=== PATIENT | male | born 1980 | race African-American/Black ===

== ENCOUNTER 2017-01-04 11:27 | Emergency (ER) | payer OTHER ==
[2017-01-04] MEDS ORDERED: Ibuprofen TAB* 600 MG PO ONE (13:21)
--- NOTE | 2017-01-04 13:43 | RAD ---
INDICATION: Headaches COMPARISON: February 08, 2013 TECHNIQUE: Noncontrast axial source images were acquired from the skull base to the vertex. FINDINGS: Ventricles/sulci: The ventricles and cisterns are normal in size and configuration for age. Brain parenchyma: There is no focal parenchymal finding, evidence of intracranial mass, or intracranial mass effect. Intracranial hemorrhage:None. Extra-axial spaces: There are no abnormal extra axial fluid collections or evidence of extra-axial mass. Calvarium: There is no calvarial fracture. 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 Scalp: There is no evidence of scalp or extracalvarial soft tissue abnormality. Paranasal sinuses/mastoid: The paranasal sinuses and mastoid air cells are clear. Other: None. IMPRESSION: No acute intrarenal findings.
[2017-01-04 14:05] LABS: Hematocrit 46 % (42-52); Hemoglobin 15.3 g/dl (14.0-18.0); Mean Corpuscular HGB Conc 33 g/dl (31-36); Mean Corpuscular Hemoglobin 30 pg (27-31); Mean Corpuscular Volume 92 fL (80-94); Mean Platelet Volume 9 um3 (7.4-10.4); Red Blood Count 5.05 10^6/ul (4.0-5.4); Red Cell Distribution Width 13 % (10.5-15); White Blood Count 3.8 10^3/ul (3.5-10.8)
[2017-01-04 14:07] LABS: Add Diff/Slide Review? Slide Review Added; Comments Flag Yes
[2017-01-04 14:18] LABS: BUN/Creatinine Ratio 13.3 (8-20); Calcium 9.2 mg/dL (8.6-10.3); EGFR African American 136.4 (>60); EGFR Non-African American 106.1 (>60); Globulin 2.8 g/dL (2-4); Potassium 3.9 mmol/L (3.5-5.0); Total Bilirubin 0.6 mg/dL (0.2-1.0); Total Protein 6.8 g/dL (6.4-8.9)
[2017-01-04 15:02] LABS: TSH (Thyroid Stimulating Horm) 0.18 mcIU/mL (0.34-5.60)
[2017-01-04 15:39] VITALS: BP 108/85
--- NOTE | 2017-01-04 22:33 | ED ---
Vickie Sorensen Salem, scribed for Gera Segovia MD on 01/04/17 at 1318 . Headache - HPI Summary HPI Summary: Patient is a 36 y/o male who presents to the ED with an intermittent, sharp, left frontal headache for the past 3 days. Pt reports CP that radiates to his head. He also reports an increase in blood pressure with salty PO intake followed by shaking and a severe headache. He denies any changes in vision or nausea. He states he called his PCP today was told to come into the ED. Pt reports he has been taking Ibuprofen for the pain with mild alleviation of pain , but he has not taken any medication today. He denies HTN and has a hx of headaches. - History Of Current Complaint Chief Complaint: EDChestPainROMI Stated Complaint: CHEST PAIN, HEADACHE, HIGH BLOOD PRESSURE Time Seen by Provider: 01/04/17 13:01 Hx Obtained From: Patient Onset/Duration: Gradual Onset, Started days ago Initially Headache Was: Moderate Currently Pain Is: Moderate Timing: Intermittent, Lasting: Character: Sharp Location of Headache: Frontal - Left sided. Aggravating Factor: Other - Salt intake. Associated Signs And Symptoms: Other (Noted In Comments) - Ibuprofen - Allergies/Home Medications Allergies/Adverse Reactions: Allergies Allergy/AdvReac Type Severity Reaction Status Date / Time Shellfish Allergy Allergy Intermediate Hives Verified 01/04/17 11:30 Penicillins Allergy Unknown Unknown Verified 01/04/17 11:30 Reaction Details PMH/Surg Hx/FS Hx/Imm Hx Respiratory History: Reports: Hx Asthma Musculoskeletal History: Reports: Other Musculoskeletal History - cp Infectious Disease History: No Infectious Disease History: Denies: Traveled Outside the [place] in Last 30 Days - Family History Known Family History: Positive: Hypertension - Social History Alcohol Use: Rare Hx Substance Use: No Substance Use Type: Reports: None Hx Tobacco Use: No Smoking Status (MU): Never Smoked Tobacco Review of Systems Negative: Fever Positive: Other - No changes in vision. Positive: Chest Pain, Other - Increased bp with salt intake. Negative: Nausea Positive: Headache - Left frontal. All Other Systems Reviewed And Are Negative: Yes Physical Exam Triage Information Reviewed: Yes Vital Signs On Initial Exam: Initial Vitals Temp Pulse Resp BP Pulse Ox 98.8 F 84 16 129/77 100 01/04/17 11:41 01/04/17 11:41 01/04/17 11:41 01/04/17 11:41 01/04/17 11:41 Vital Signs Reviewed: Yes Appearance: Positive: Well-Appearing, No Pain Distress Skin: Positive: Warm, Skin Color Reflects Adequate Perfusion, Dry Head/Face: Positive: Normal Head/Face Inspection Eyes: Positive: Normal Neck: Positive: Supple, Nontender Respiratory/Lung Sounds: Positive: Clear to Auscultation, Breath Sounds Present Cardiovascular: Positive: RRR Abdomen Description: Positive: Nontender, Soft Bowel Sounds: Positive: Present Musculoskeletal: Positive: Normal, Other - Weakness and deformity due to cerebral palsy. Neurological: Positive: Normal Psychiatric: Positive: Normal, Affect/Mood Appropriate Diagnostics - Vital Signs Vital Signs Temp Pulse Resp BP Pulse Ox 01/04/17 11:41 98.8 F 84 16 129/77 100 - Laboratory Lab Results: Lab Results 01/04/17 01/04/17 01/04/17 Range/Units 13:53 13:53 13:53 WBC 3.8 (3.5-10.8) 10^3/ul RBC 5.05 (4.0-5.4) 10^6/ul Hgb 15.3 (14.0-18.0) g/dl Hct 46 (42-52) % MCV 92 (80-94) fL MCH 30 (27-31) pg MCHC 33 (31-36) g/dl RDW 13 (10.5-15) % Plt Count 221 (150-450) 10^3/ul MPV 9 (7.4-10.4) um3 Neut % (Auto) 46.2 (38-83) % Lymph % (Auto) 37.8 (25-47) % Grady % (Auto) 8.9 (1-9) % Eos % (Auto) 5.4 (0-6) % Baso % (Auto) 1.7 (0-2) % Absolute Neuts (auto) 1.7 (1.5-7.7) 10^3/ul Absolute Lymphs (auto) 1.4 (1.0-4.8) 10^3/ul Absolute Monos (auto) 0.3 (0-0.8) 10^3/ul Absolute Eos (auto) 0.2 (0-0.6) 10^3/ul Absolute Basos (auto) 0.1 (0-0.2) 10^3/ul Absolute Nucleated RBC 0.01 10^3/ul Nucleated RBC % 0.2 Sodium 138 (133-145) mmol/L Potassium 3.9 (3.5-5.0) mmol/L Chloride 105 (101-111) mmol/L Carbon Dioxide 30 (22-32) mmol/L Anion Gap 3 (2-11) mmol/L BUN 11 (6-24) mg/dL Creatinine 0.83 (0.67-1.17) mg/dL Est GFR ( Amer) 136.4 (>60) Est GFR (Non-Af Amer) 106.1 (>60) BUN/Creatinine Ratio 13.3 (8-20) Glucose 81 (70-100) mg/dL Lactic Acid 1.5 (0.5-2.0) mmol/L Calcium 9.2 (8.6-10.3) mg/dL Total Bilirubin 0.60 (0.2-1.0) mg/dL AST 15 (13-39) U/L ALT 7 (7-52) U/L Alkaline Phosphatase 48 (34-104) U/L Troponin I 0.00 (<0.04) ng/mL Total Protein 6.8 (6.4-8.9) g/dL Albumin 4.0 (3.2-5.2) g/dL Globulin 2.8 (2-4) g/dL Albumin/Globulin Ratio 1.4 (1-3) TSH 0.18 L (0.34-5.60) mcIU/mL Result Diagrams: 01/04/17 13:53 01/04/17 13:53 Lab Statement: Any lab studies that have been ordered have been reviewed, and results considered in the medical decision making process. - CT BRAIN CT Interpretation Completed By: Radiologist - IMPRESSION: No acute intrarenal findings. - EKG 1136 EKG Rhythm: Sinus Rhythm - @ 70 bpm. Re-Evaluation - Re-Evaluation First Eval Re-Evaluation Time: 15:11 Comment: Informed pt of plan. He is agreeable. Headache Course/Dx - Course Course Of Treatment: Amrik improved with ibuprofen and his W/U was negative. I recommended close F/U and monitoring of his blood pressure. - Diagnoses Provider Diagnoses: Headache Discharge - Discharge Plan Condition: Stable Disposition: HOME Patient Education Materials: Acute Headache (ED) Forms: *Work Release Referrals: Judy Muñoz B[employer]ER [Primary Care Provider] - Additional Instructions: Follow up with PCP this week. The documentation as recorded by the Vickie walsh Salem accurately reflects the service I personally performed and the decisions made by me, Gera Segovia MD.
== END 2017-01-04 15:38 | disposition home or self-care (01) ==
LOC: ED 11:27
DX: R51 Headache (principal); Z88.0 Allergy status to penicillin
CPT/HCPCS: 36415; 70450; 80053; 83605; 84443; 84484; 85025; 86703; 93005; 99282; A9270-GY

== ENCOUNTER 2017-09-30 18:44 | Emergency (ER) | payer OTHER ==
[2017-09-30 19:06] VITALS: BP 135/82
--- NOTE | 2017-09-30 19:26 | UC ---
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 He had previously had similar episodes and last one was 2 years ago. He had CT head in February 08, 2013 which was wnl. - History Of Current Complaint Chief Complaint: UCHeadache Stated Complaint: HEADACHE Time Seen by Provider: 09/30/17 19:15 Hx Obtained From: Patient Onset/Duration: Sudden Onset, Lasting Hours Onset Of Symptoms: Sudden Currently Pain Is: Moderate Pain Scale Used: 0-10 Numeric - 7 Character: Throbbing Location of Headache: Other: - hemicranial right - Allergies/Home Medications Allergies/Adverse Reactions: Allergies Allergy/AdvReac Type Severity Reaction Status Date / Time Shellfish Allergy Allergy Intermediate Hives Verified 09/30/17 19:07 Penicillins Allergy Unknown Unknown Verified 09/30/17 19:07 Reaction Details PMH/Surg Hx/FS Hx/Imm Hx Previously Healthy: Yes Respiratory History: Asthma Neurological History: Other - cerebral palsy Other Neurological History: cn II to XII grossly intact, no nistagmus, no adiadocokynesia, atrophic LE/ - Surgical History Surgical History: None Surgery Procedure, Year, and Place: Legs as a child - Family History Known Family History: Positive: Hypertension - Social History Alcohol Use: None Substance Use Type: None Smoking Status (MU): Never Smoked Tobacco - Immunization History Most Recent Influenza Vaccination: 2016 Review of Systems Neurological: Headache Is Patient Immunocompromised?: No All Other Systems Reviewed And Are Negative: Yes Physical Exam Triage Information Reviewed: Yes Appearance: No Pain Distress Vital Signs: Initial Vital Signs Temp 98.3 F 09/30/17 19:01 Pulse 79 09/30/17 19:01 Resp 16 09/30/17 19:01 BP 135/82 09/30/17 19:01 Pulse Ox 97 09/30/17 19:01 Vital Signs Reviewed: Yes Eyes: Positive: Conjunctiva Clear, Other: - PERRLA ENT Exam: Normal Neck exam: Normal Respiratory Exam: Normal Cardiovascular Exam: Normal Abdominal Exam: Normal Bowel Sounds: Positive: Present Neurological Exam: Other - CN 11-XII grossly intact, no nystagmus, Neurological: Positive: Alert Headache Course/Dx - Differential Dx/Diagnosis Provider Diagnoses: Migraine headache Discharge - Discharge Plan Condition: Stable Disposition: HOME Patient Education Materials: Migraine Headache (ED) Forms: *Work Release Referrals: Judy Muñoz NP [Primary Care Provider] -
[2017-09-30] MEDS ORDERED: Naproxen TAB* 250 MG PO ONE (19:32)
== END 2017-09-30 20:11 | disposition home or self-care (01) ==
LOC: UCEAST 18:44
DX: G43.909 Migraine, unspecified, not intractable, without status migrainosus (principal); Z88.0 Allergy status to penicillin; Z91.013 Allergy to seafood
CPT/HCPCS: 99212; A9270-GY; G0463

== ENCOUNTER 2017-11-30 15:08 | Emergency (ER) | payer OTHER ==
[2017-11-30 15:18] VITALS: BP 107/68
--- NOTE | 2017-11-30 15:36 | UC ---
Michel Sorensen Jennifer, scribed for Rl Hagen MD on 11/30/17 at 1525 . Abdominal Pain Male HPI - HPI Summary HPI Summary: The pt is a 37 y/o male who presents with abdominal pain that began last night. Pt reports he took ibuprofen for the pain and developed a headache. The pain is rated a 5/10 and is described as sharp and located diffusely in the upper abdomen, more so on the left. Pt additionally complains he woke up sweating and occasional constipation. Pt reports he is eating okay. He denies nausea, vomiting, diarrhea, and fever. Pt has cerebral palsy. - History of Current Complaint Stated Complaint: ABDOMINAL PAIN, AND HEADACHE Time Seen by Provider: 11/30/17 15:16 Hx Obtained From: Patient Onset/Duration: Sudden Onset, Lasting Hours - Last night, Still Present Timing: Constant Severity Initially: Moderate Severity Currently: Moderate Pain Intensity: 5 Pain Scale Used: 0-10 Numeric Location: Diffuse Radiates: No Character: Cramping, Sharp Aggravating Factor(s): Nothing Alleviating Factor(s): Nothing Associated Signs And Symptoms: Positive: Other - abdominal pain, headache, sweats, occasional constipation. NEGATIVE: fever, nausea, vomiting, diarrhea - Allergies/Home Medications Allergies/Adverse Reactions: Allergies Allergy/AdvReac Type Severity Reaction Status Date / Time Penicillins Allergy Unknown Verified 11/30/17 15:14 Reaction Details shellfish derived Allergy Hives Verified 11/30/17 15:14 Home Medications: Home Medications Ibuprofen [Advil Migraine] 400 mg PO Q6HR PRN 11/30/17 [History Confirmed ] PMH/Surg Hx/FS Hx/Imm Hx Previously Healthy: Yes - Cerebral Palsy - Surgical History Surgical History: None Surgery Procedure, Year, and Place: Legs as a child - Family History Known Family History: Positive: Hypertension - Social History Alcohol Use: None Substance Use Type: None Smoking Status (MU): Never Smoked Tobacco - Immunization History Most Recent Influenza Vaccination: 2016 Review of Systems Constitutional: Negative - Fever Gastrointestinal: Negative - Nausea, vomiting, diarrhea, Abdominal Pain Genitourinary: Other - Occasional constipation Neurological: Headache Is Patient Immunocompromised?: No All Other Systems Reviewed And Are Negative: Yes Physical Exam - Summary Physical Exam Summary: General: well-appearing, no pain distress. Pt is in a wheelchair. Skin: warm, color reflects adequate perfusion, dry Head: normal Eyes: EOMI, STEVO ENT: normal Neck: supple, nontender Respiratory: CTA, breath sounds present Cardiovascular: RRR Abdomen: soft, tender around the umbilicus. Bowel: hypoactive bowel sounds Musculoskeletal: normal, strength/ROM intact Neurological: normal, sensory/motor intact, A&O x3 Psychological: affect/mood appropriate Triage Information Reviewed: Yes Vital Signs: Initial Vital Signs Temp 99.3 F 11/30/17 15:13 Pulse 81 11/30/17 15:13 Resp 18 11/30/17 15:13 BP 107/68 11/30/17 15:13 Pulse Ox 96 11/30/17 15:13 Vital Signs Reviewed: Yes Abd Pain Male Course/Dx - Course Course Of Treatment: Medications reviewed. Allergies noted. DISCUSSED WITH PATIENT I RECOMMEND CT WITH LABS THAT RESULT TODAY FOR EVALUATION OF HIS ABDOMINAL PAIN AND I RECOMMEND EVALUATION IN THE ED. THE PATIENT AGREES AND WILL DRIVE HIMSLEF TO THE ED. I SPOKE WITH ED NURSING ABOUT THE PATIENT. - Differential Dx/Clinical Impression Provider Diagnoses: LEFT SIDED ABDOMINAL PAIN Discharge - Discharge Plan Condition: Stable Disposition: HOME Patient Education Materials: Acute Abdominal Pain (ED) Referrals: Judy Muñoz NP [Primary Care Provider] - Additional Instructions: GO DIRECTLY TO THE EMERGENCY DEPARTMENT FOR FURTHER EVALUATION OF YOUR ABDOMINAL PAIN. The documentation as recorded by the Michel walsh Jennifer accurately reflects the service I personally performed and the decisions made by me, Rl Hagen MD.
== END 2017-11-30 15:31 | disposition home or self-care (01) ==
LOC: UCEAST 15:08
DX: R10.12 Left upper quadrant pain (principal); K59.00 Constipation, unspecified; R51 Headache; G80.9 Cerebral palsy, unspecified
CPT/HCPCS: 99212; G0463

== ENCOUNTER 2018-11-16 21:58 | Emergency (ER) | payer OTHER ==
[2018-11-16] MEDS ORDERED: Nicotine Inhaler* 10 MG AMP INH PRN (22:33)
[2018-11-16 22:51] LABS: ABS Basophils 0 10^3/ul (0-0.2); ABS Eosinophils 0.1 10^3/ul (0-0.6); ABS Lymphocytes 1.6 10^3/ul (1.0-4.8); ABS Monocytes 0.4 10^3/ul (0-0.8); ABS Neutrophils 2.3 10^3/ul (1.5-7.7); ABS Nucleated RBC 0 10^3/ul; Hematocrit 49 % (42-52); Lymphocyte % 35.3 %; Mean Corpuscular HGB Conc 33 g/dl (31-36); Mean Corpuscular Hemoglobin 31 pg (27-31); Mean Corpuscular Volume 93 fL (80-94); Mean Platelet Volume 8.6 fL (7.4-10.4); Nucleated Red Blood Cells % 0.1; Platelet Count 227 10^3/ul (150-450); Red Blood Count 5.23 10^6/ul (4.00-5.40); Red Cell Distribution Width 13 % (10.5-15); White Blood Count 4.4 10^3/ul (3.5-10.8)
[2018-11-16 23:04] LABS: ALT 8 U/L (7-52); AST 15 U/L (13-39); Albumin 4.5 g/dL (3.2-5.2); Albumin/Globulin Ratio 1.5 (1-3); Alkaline Phosphatase 60 U/L (34-104); Anion Gap 7 mmol/L (2-11); BUN/Creatinine Ratio 11.1 (8-20); Blood Urea Nitrogen 9 mg/dL (6-24); CO2 Carbon Dioxide 28 mmol/L (22-32); Calcium 9.5 mg/dL (8.6-10.3); Chloride 104 mmol/L (101-111); EGFR African American 130.5 (>60); EGFR Non-African American 107.8 (>60); Glucose 113 mg/dL (70-100); Potassium 3.4 mmol/L (3.5-5.0); Sodium 139 mmol/L (135-145); Total Protein 7.5 g/dL (6.4-8.9)
[2018-11-16 23:21] LABS: Acetaminophen < 15 mcg/mL; Alcohol < 10 mg/dL (<10); Salicylate < 2.50 mg/dL (<30)
[2018-11-17 00:03] LABS: Urine Appearance Cloudy; Urine Bacteria Absent (Absent); Urine Bilirubin Negative (Negative); Urine Blood 1+ (Negative); Urine Color Amber; Urine Glucose Negative (Negative); Urine Ketones Trace (Negative); Urine Nitrite Negative (Negative); Urine Protein 1+(30 mg/dL) (Negative); Urine Red Blood Cell 1+(3-5/hpf) (Absent); Urine Specific Gravity 1.028 (1.010-1.030); Urine Squamous Epithelial Cell Present (Absent); Urine Urobilinogen Positive (Negative); Urine White Blood Cell 3+(>20/hpf) (Absent)
[2018-11-17 00:13] LABS: Barbiturates Urine Screen None Detected (None Detect); Benzodiazepine Urine Screen None Detected (None Detect); Urine Cannabinoids Screen None Detected (None Detect)
--- NOTE | 2018-11-17 01:18 | ED ---
Medical Screening - HPI Summary HPI Summary: Patient brought 9[address] for expressing suicidal intent on a phone call to his ex-girlfriend. Patient admits to stay event, but states he called down afterwards and does not have those intentions now. Denies any symptoms of illness, pain or injury. Denies, history of suicide attempt, HI. Denies EtOH, recreational drug use. Medical history cerebral palsy and arthritis. I - History of Current Complaint Chief Complaint: EDMentalHealth Stated Complaint: 941 Time Seen by Provider: 11/16/18 22:18 Onset/Duration: Started Hours Ago Severity: mild Associated Signs and Symptoms: Negative PMH/Surg Hx/FS Hx/Imm Hx Endocrine/Hematology History: Denies: Hx Anticoagulant Therapy Cardiovascular History: Denies: Hx Pacemaker/ICD Respiratory History: Reports: Hx Asthma History: Denies: Hx Dialysis Musculoskeletal History: Reports: Other Musculoskeletal History - cp Sensory History: Denies: Hx Eye Prosthesis Neurological History: Denies: Hx Dementia Psychiatric History: Denies: Hx Eating Disorder - Surgical History Surgery Procedure, Year, and Place: Legs as a child Infectious Disease History: No Infectious Disease History: Denies: History Other Infectious Disease, Traveled Outside the [place] in Last 30 Days - Family History Known Family History: Positive: Hypertension - Social History Alcohol Use: None Hx Substance Use: No Substance Use Type: Reports: None Hx Tobacco Use: No Smoking Status (MU): Never Smoked Tobacco Review of Systems Constitutional: Negative Eyes: Negative ENT: Negative Cardiovascular: Negative Respiratory: Negative Gastrointestinal: Negative Genitourinary: Negative Musculoskeletal: Negative Skin: Negative Neurological: Negative Psychological: Normal All Other Systems Reviewed And Are Negative: Yes Physical Exam - Summary Physical Exam Summary: Patient calm and cooperative. Denies active SI's intentions. Triage Information Reviewed: Yes Vital Signs On Initial Exam: Initial Vitals Temp Pulse Resp BP Pulse Ox 99.3 F 93 18 121/88 97 11/16/18 21:58 11/16/18 21:58 11/16/18 21:58 11/16/18 21:58 11/16/18 21:58 Vital Signs Reviewed: Yes Appearance: Positive: Well-Appearing Skin: Positive: Warm Head/Face: Positive: Normal Head/Face Inspection Eyes: Positive: Normal Neck: Positive: Supple Respiratory/Lung Sounds: Positive: Clear to Auscultation Cardiovascular: Positive: Normal Abdomen Description: Positive: Nontender Musculoskeletal: Positive: Normal Neurological: Positive: Normal Psychiatric: Positive: Normal AVPU Assessment: Alert - Josh Coma Scale Best Eye Response: 4 - Spontaneous Best Motor Response: 6 - Obeys Commands Best Verbal Response: 5 - Oriented Coma Scale Total: 15 Diagnostics - Vital Signs Vital Signs Temp Pulse Resp BP Pulse Ox 11/16/18 21:58 99.3 F 93 18 121/88 97 - Laboratory Lab Results: Lab Results 11/16/18 11/16/18 11/16/18 Range/Units 22:42 22:42 23:40 WBC 4.4 (3.5-10.8) 10^3/ul RBC 5.23 (4.00-5.40) 10^6/ul Hgb 16.0 (14.0-18.0) g/dl Hct 49 (42-52) % MCV 93 (80-94) fL MCH 31 (27-31) pg MCHC 33 (31-36) g/dl RDW 13 (10.5-15) % Plt Count 227 (150-450) 10^3/ul MPV 8.6 (7.4-10.4) fL Neut % (Auto) 51.4 % Lymph % (Auto) 35.3 % Hemphill % (Auto) 9.4 % Eos % (Auto) 3.0 % Baso % (Auto) 0.9 % Absolute Neuts (auto) 2.3 (1.5-7.7) 10^3/ul Absolute Lymphs (auto) 1.6 (1.0-4.8) 10^3/ul Absolute Monos (auto) 0.4 (0-0.8) 10^3/ul Absolute Eos (auto) 0.1 (0-0.6) 10^3/ul Absolute Basos (auto) 0 (0-0.2) 10^3/ul Absolute Nucleated RBC 0 10^3/ul Nucleated RBC % 0.1 Sodium 139 (135-145) mmol/L Potassium 3.4 L (3.5-5.0) mmol/L Chloride 104 (101-111) mmol/L Carbon Dioxide 28 (22-32) mmol/L Anion Gap 7 (2-11) mmol/L BUN 9 (6-24) mg/dL Creatinine 0.81 (0.67-1.17) mg/dL Est GFR ( Amer) 130.5 (>60) Est GFR (Non-Af Amer) 107.8 (>60) BUN/Creatinine Ratio 11.1 (8-20) Glucose 113 H (70-100) mg/dL Calcium 9.5 (8.6-10.3) mg/dL Total Bilirubin 0.60 (0.2-1.0) mg/dL AST 15 (13-39) U/L ALT 8 (7-52) U/L Alkaline Phosphatase 60 (34-104) U/L Total Protein 7.5 (6.4-8.9) g/dL Albumin 4.5 (3.2-5.2) g/dL Globulin 3.0 (2-4) g/dL Albumin/Globulin Ratio 1.5 (1-3) TSH 1.90 (0.34-5.60) mcIU/mL Urine Color Regine Urine Appearance Cloudy Urine pH 6.0 (5-9) Ur Specific Searcy 1.028 (1.010-1.030) Urine Protein 1+(30 mg/dl) A (Negative) Urine Ketones Trace A (Negative) Urine Blood 1+ A (Negative) Urine Nitrate Negative (Negative) Urine Bilirubin Negative (Negative) Urine Urobilinogen Positive A (Negative) Ur Leukocyte Esterase 2+ A (Negative) Urine WBC (Auto) 3+(>20/hpf) A (Absent) Urine RBC (Auto) 1+(3-5/hpf) A (Absent) Ur Squamous Epith Cells Present A (Absent) Calcium Oxalate Crystal Present A (Absent) Urine Bacteria Absent (Absent) Urine Glucose Negative (Negative) Salicylates < 2.50 (<30) mg/dL Urine Opiates Screen (None Detect) Acetaminophen < 15 mcg/mL Ur Barbiturates Screen (None Detect) Ur Phencyclidine Scrn (None Detect) Ur Amphetamines Screen (None Detect) U Benzodiazepines Scrn (None Detect) Urine Cocaine Screen (None Detect) U Cannabinoids Screen (None Detect) Serum Alcohol < 10 (<10) mg/dL 11/16/18 Range/Units 23:40 WBC (3.5-10.8) 10^3/ul RBC (4.00-5.40) 10^6/ul Hgb (14.0-18.0) g/dl Hct (42-52) % MCV (80-94) fL MCH (27-31) pg MCHC (31-36) g/dl RDW (10.5-15) % Plt Count (150-450) 10^3/ul MPV (7.4-10.4) fL Neut % (Auto) % Lymph % (Auto) % Hemphill % (Auto) % Eos % (Auto) % Baso % (Auto) % Absolute Neuts (auto) (1.5-7.7) 10^3/ul Absolute Lymphs (auto) (1.0-4.8) 10^3/ul Absolute Monos (auto) (0-0.8) 10^3/ul Absolute Eos (auto) (0-0.6) 10^3/ul Absolute Basos (auto) (0-0.2) 10^3/ul Absolute Nucleated RBC 10^3/ul Nucleated RBC % Sodium (135-145) mmol/L Potassium (3.5-5.0) mmol/L Chloride (101-111) mmol/L Carbon Dioxide (22-32) mmol/L Anion Gap (2-11) mmol/L BUN (6-24) mg/dL Creatinine (0.67-1.17) mg/dL Est GFR ( Amer) (>60) Est GFR (Non-Af Amer) (>60) BUN/Creatinine Ratio (8-20) Glucose (70-100) mg/dL Calcium (8.6-10.3) mg/dL Total Bilirubin (0.2-1.0) mg/dL AST (13-39) U/L ALT (7-52) U/L Alkaline Phosphatase (34-104) U/L Total Protein (6.4-8.9) g/dL Albumin (3.2-5.2) g/dL Globulin (2-4) g/dL Albumin/Globulin Ratio (1-3) TSH (0.34-5.60) mcIU/mL Urine Color Urine Appearance Urine pH (5-9) Ur Specific Searcy (1.010-1.030) Urine Protein (Negative) Urine Ketones (Negative) Urine Blood (Negative) Urine Nitrate (Negative) Urine Bilirubin (Negative) Urine Urobilinogen (Negative) Ur Leukocyte Esterase (Negative) Urine WBC (Auto) (Absent) Urine RBC (Auto) (Absent) Ur Squamous Epith Cells (Absent) Calcium Oxalate Crystal (Absent) Urine Bacteria (Absent) Urine Glucose (Negative) Salicylates (<30) mg/dL Urine Opiates Screen None detected (None Detect) Acetaminophen mcg/mL Ur Barbiturates Screen None detected (None Detect) Ur Phencyclidine Scrn None detected (None Detect) Ur Amphetamines Screen None detected (None Detect) U Benzodiazepines Scrn None detected (None Detect) Urine Cocaine Screen None detected (None Detect) U Cannabinoids Screen None detected (None Detect) Serum Alcohol (<10) mg/dL Result Diagrams: 11/16/18 22:42 11/16/18 22:42 Lab Statement: Any lab studies that have been ordered have been reviewed, and results considered in the medical decision making process. Course/Dx - Course Course Of Treatment: Patient brought [address] for expressing suicidal intent on a phone call to his ex-girlfriend. Patient admits to stay event, but states he called down afterwards and does not have those intentions now. Denies any symptoms of illness, pain or injury. Denies, history of suicide attempt, HI. Denies EtOH, recreational drug use. Medical history cerebral palsy and arthritis. Physical exam:Patient calm and cooperative. Denies active SI's intentions. Vital signs within normal limits. Labs unremarkable. UA suggests possible UTI however patient is asymptomatic. Evaluated by mental health and discharged with diagnosis of adjustment disorder. - Diagnoses Provider Diagnoses: Adjustment disorder Discharge - Sign-Out/Discharge Documenting (check all that apply): Patient Departure Patient Received Moderate/Deep Sedation with Procedure: No - Discharge Plan Condition: Good Disposition: HOME Patient Education Materials: Mood Disorders (ED) Referrals: Judy Muñoz NP [Primary Care Provider] - - Billing Disposition and Condition Condition: GOOD Disposition: Home
[2018-11-17 01:20] VITALS: BP 123/79
== END 2018-11-17 01:00 | disposition home or self-care (01) ==
LOC: ED 21:58
DX: F43.20 Adjustment disorder, unspecified (principal); G80.9 Cerebral palsy, unspecified
CPT/HCPCS: 36415; 80053; 80307; 80320; 80329; 81003; 81015; 84443; 85025; 87086; 99284; G0480

== ENCOUNTER 2021-06-11 09:40 | Inpatient (IN) ==
[2021-06-11] MEDS ORDERED: NS 0.9% 1000 ml BAG 1,000 ML IV ONE (09:44)
[2021-06-11 10:11] LABS: ABS Lymphocytes 0.6 10^3/ul (1.0-4.8); ABS Monocytes 0.3 10^3/ul (0-0.8); ABS Neutrophils 6.3 10^3/ul (1.5-7.7); Hematocrit 46 % (42-52); Hemoglobin 15.6 g/dL (14.0-18.0); Lymphocyte % 7.8 %; Mean Corpuscular HGB Conc 34 g/dL (31-36); Mean Corpuscular Hemoglobin 31 pg (27-31); Mean Corpuscular Volume 92 fL (80-94); Mean Platelet Volume 8.6 fL (7.4-10.4); Platelet Count 213 10^3/uL (150-450); Red Blood Count 4.97 10^6 /uL (4.18-5.48); Red Cell Distribution Width 13 % (10-15); White Blood Count 7.2 10^3/uL (3.5-10.8)
[2021-06-11 10:32] LABS: Albumin 3.9 g/dL (3.2-5.2); Albumin/Globulin Ratio 1.1 (1-3); C Reactive Protein 82.02 mg/L (<8.01); Calcium 8.5 mg/dL (8.6-10.3); EGFR African American 112.2 (>60); EGFR Non-African American 92.8 (>60); Globulin 3.6 g/dL (2-4); Potassium 3.3 mmol/L (3.5-5.0); Total Bilirubin 0.9 mg/dL (0.2-1.0); Total Protein 7.5 g/dL (6.4-8.9)
[2021-06-11 10:35] LABS: Venous Bicarbonate HCO3 30.6 mmol/L (24-28)
[2021-06-11 10:43] LABS: Rapid COVID-19 Molecular Detected (Undetected)
[2021-06-11 10:52] LABS: Influenza A Molecular Negative (Negative); Influenza B Molecular Negative (Negative)
[2021-06-11 11:09] LABS: Ferritin 397.9 ng/mL (24-336)
[2021-06-11 11:11] LABS: Activated Partial Thrombo Time 33.9 seconds (26.0-38.0); INR 1.4 (0.86-1.15)
[2021-06-11] MEDS ORDERED: Remdesivir 100 mg Vial 200 MG in NS 0.9% 250 ml 210 ML IV ONE (12:46)
[2021-06-11] MEDS ORDERED: NS 0.9% 500 ml BAG 500 ML IV ONE (12:51)
[2021-06-11] MEDS ORDERED: Potassium Chlor 20 meq TAB.ER PO ONE (14:09)
[2021-06-11 15:15] LABS: Urine Appearance Cloudy; Urine Bilirubin Negative (Negative); Urine Blood 1+ (Negative); Urine Color Amber; Urine Glucose Negative (Negative); Urine Ketones 2+ (Negative); Urine Nitrite Negative (Negative); Urine Protein 3+(>=500 mg/dL) (Negative); Urine Specific Gravity 1.027 (1.002-1.030); Urine Urobilinogen Positive (Negative)
[2021-06-11 15:26] LABS: Urine Bacteria 1+ (Absent); Urine Red Blood Cell 2+(6-10/hpf) (Absent); Urine Squamous Epithelial Cell Present (Absent); Urine White Blood Cell 2+(11-20/hpf) (Absent)
[2021-06-11] MEDS: SPIRIVA Respimat (tiotropium) 2.5 mcg/inh Inhaler INH SCH (15:29)
[2021-06-11] MEDS: Mometasone/Formoter 100/5 MDI INH SCH ×2 (15:30→23:28)
[2021-06-11] MEDS: Enoxaparin 40 MG/0.4 ML SYR SUBCUT SCH (15:37)
[2021-06-12] MEDS: Albuterol HFA INHALER 8 gm MDI INH PRN (00:04)
[2021-06-12] MEDS: NS 0.9% 1000 ml BAG 1,000 ML IV SCH ×3 (00:06→20:19)
[2021-06-12 07:37] LABS: ABS Lymphocytes 0.5 10^3/ul (1.0-4.8); ABS Monocytes 0.2 10^3/ul (0-0.8); ABS Neutrophils 4.3 10^3/ul (1.5-7.7); Hematocrit 41 % (42-52); Lymphocyte % 9.3 %; Mean Corpuscular HGB Conc 34 g/dL (31-36); Mean Corpuscular Hemoglobin 31 pg (27-31); Mean Corpuscular Volume 92 fL (80-94); Mean Platelet Volume 8.3 fL (7.4-10.4); Platelet Count 222 10^3/uL (150-450); Red Blood Count 4.47 10^6 /uL (4.18-5.48); Red Cell Distribution Width 13 % (10-15); White Blood Count 4.9 10^3/uL (3.5-10.8)
[2021-06-12 07:57] LABS: EGFR African American 154.5 (>60); EGFR Non-African American 127.6 (>60); Potassium 4.1 mmol/L (3.5-5.0)
[2021-06-12] MEDS: Mometasone/Formoter 100/5 MDI INH SCH ×2 (09:35→20:22)
[2021-06-12] MEDS: SPIRIVA Respimat (tiotropium) 2.5 mcg/inh Inhaler INH SCH (09:35)
[2021-06-12] MEDS: Enoxaparin 40 MG/0.4 ML SYR SUBCUT SCH (09:52)
[2021-06-12] MEDS: Remdesivir 100 mg Vial 100 MG in NS 0.9% 250 ml 230 ML IV SCH (09:52)
[2021-06-12] MEDS: methylPREDNISolone SOD 40 mg/ml 1 ml VIAL IV SCH ×2 (11:50→18:14)
[2021-06-12] MEDS: Azithromycin 500 mg/250 ml NS 500 MG/250 ML BAG IVPB SCH (11:50)
[2021-06-12] MEDS ORDERED: cefTRIAXone 1 gm/50 mL NS BAG 1 GM/50 ML BAG IVPB SCH (12:00)
[2021-06-12] MEDS: CMCS: Baricitinib 2 MG TAB (NF) PO SCH (15:50)
[2021-06-12] MEDS: cefTRIAXone 1 gm/50 mL NS BAG 1 GM/50 ML BAG IVPB SCH (15:50)
[2021-06-13] MEDS: methylPREDNISolone SOD 40 mg/ml 1 ml VIAL IV SCH ×3 (02:53→18:02)
[2021-06-13] MEDS: Albuterol HFA INHALER 8 gm MDI INH PRN ×2 (03:19→07:48)
[2021-06-13] MEDS: NS 0.9% 1000 ml BAG 1,000 ML IV SCH (06:37)
[2021-06-13 06:46] LABS: ABS Lymphocytes 0.7 10^3/ul (1.0-4.8); ABS Monocytes 0.5 10^3/ul (0-0.8); ABS Neutrophils 7.4 10^3/ul (1.5-7.7); Hematocrit 41 % (42-52); Hemoglobin 13.7 g/dL (14.0-18.0); Lymphocyte % 8.2 %; Mean Corpuscular HGB Conc 34 g/dL (31-36); Mean Corpuscular Hemoglobin 31 pg (27-31); Mean Corpuscular Volume 93 fL (80-94); Mean Platelet Volume 8.6 fL (7.4-10.4); Platelet Count 280 10^3/uL (150-450); Red Blood Count 4.41 10^6 /uL (4.18-5.48); Red Cell Distribution Width 13 % (10-15); White Blood Count 8.7 10^3/uL (3.5-10.8)
[2021-06-13 07:00] LABS: Albumin 3.2 g/dL (3.2-5.2); Albumin/Globulin Ratio 1.1 (1-3); EGFR Non-African American 152.9 (>60); Potassium 3.7 mmol/L (3.5-5.0); Total Bilirubin 0.5 mg/dL (0.2-1.0); Total Protein 6.2 g/dL (6.4-8.9)
[2021-06-13] MEDS: Mometasone/Formoter 100/5 MDI INH SCH ×2 (07:47→21:09)
[2021-06-13] MEDS: SPIRIVA Respimat (tiotropium) 2.5 mcg/inh Inhaler INH SCH (07:47)
[2021-06-13] MEDS: Remdesivir 100 mg Vial 100 MG in NS 0.9% 250 ml 230 ML IV SCH (09:29)
[2021-06-13] MEDS: Enoxaparin 40 MG/0.4 ML SYR SUBCUT SCH (09:29)
[2021-06-13] MEDS: Azithromycin 500 mg/250 ml NS 500 MG/250 ML BAG IVPB SCH (12:15)
[2021-06-13] MEDS: cefTRIAXone 1 gm/50 mL NS BAG 1 GM/50 ML BAG IVPB SCH (13:51)
[2021-06-13] MEDS: CMCS: Baricitinib 2 MG TAB (NF) PO SCH (13:52)
[2021-06-14] MEDS: methylPREDNISolone SOD 40 mg/ml 1 ml VIAL IV SCH ×2 (03:17→09:27)
[2021-06-14] MEDS: NS 0.9% 1000 ml BAG 1,000 ML IV SCH (03:20)
[2021-06-14 04:59] LABS: ABS Lymphocytes 0.5 10^3/ul (1.0-4.8); ABS Monocytes 0.6 10^3/ul (0-0.8); ABS Neutrophils 9.7 10^3/ul (1.5-7.7); Hematocrit 36 % (42-52); Hemoglobin 11.9 g/dL (14.0-18.0); Lymphocyte % 4.6 %; Mean Corpuscular HGB Conc 33 g/dL (31-36); Mean Corpuscular Hemoglobin 31 pg (27-31); Mean Corpuscular Volume 93 fL (80-94); Mean Platelet Volume 8.3 fL (7.4-10.4); Platelet Count 269 10^3/uL (150-450); Red Blood Count 3.86 10^6 /uL (4.18-5.48); Red Cell Distribution Width 13 % (10-15); White Blood Count 10.9 10^3/uL (3.5-10.8)
[2021-06-14 05:08] LABS: INR 1.53 (0.86-1.15)
[2021-06-14 05:24] LABS: Albumin 2.6 g/dL (3.2-5.2); Albumin/Globulin Ratio 1.1 (1-3); Calcium 6.5 mg/dL (8.6-10.3); EGFR African American 234.8 (>60); Globulin 2.3 g/dL (2-4); Total Bilirubin 0.5 mg/dL (0.2-1.0); Total Protein 4.9 g/dL (6.4-8.9)
[2021-06-14] MEDS ORDERED: Potassium Chlor 20 meq TAB.ER PO ONE ×2 (06:31→15:00)
[2021-06-14] MEDS: SPIRIVA Respimat (tiotropium) 2.5 mcg/inh Inhaler INH SCH (07:52)
[2021-06-14] MEDS: Mometasone/Formoter 100/5 MDI INH SCH (07:52)
[2021-06-14] MEDS: Albuterol HFA INHALER 8 gm MDI INH PRN (07:53)
[2021-06-14] MEDS: Remdesivir 100 mg Vial 100 MG in NS 0.9% 250 ml 230 ML IV SCH (09:23)
[2021-06-14] MEDS: Enoxaparin 40 MG/0.4 ML SYR SUBCUT SCH (09:29)
[2021-06-14 12:00] VITALS: BP 133/79
[2021-06-14] MEDS: cefTRIAXone 1 gm/50 mL NS BAG 1 GM/50 ML BAG IVPB SCH (14:29)
[2021-06-14] MEDS: CMCS: Baricitinib 2 MG TAB (NF) PO SCH (14:29)
[2021-06-14] MEDS: Azithromycin 500 mg/250 ml NS 500 MG/250 ML BAG IVPB SCH (14:29)
== END 2021-06-14 15:10 | disposition home or self-care (01) | DRG 137 ==
LOC: ED 09:40 → SUATTDRO 12:40 → MED 12:40
PROVIDERS: ADMIT Internal Medicine; ATTEND Hospitalist